=== PATIENT | male | born 1995 | race Caucasian/White ===

== ENCOUNTER → 2018-03-31 | Outpatient (CLI) | payer OTHER ==
--- NOTE | 2018-03-31 15:34 | RADIOLOGY REPORT (SQ) ---
EXAM DESCRIPTION: ARTHRO SHOULDER INJECTION; FLUORO/NEEDLE PLACEMENT COMPLETED DATE/TIME: 03/31/2018 3:15 pm REASON FOR STUDY: SLAP TEAR COMPARISON: None. FLUOROSCOPY TIME: 0.2 minutes 1 images saved to PACS. LIMITATIONS: None. PROCEDURE: Procedure, risks, benefits and alternatives explained to patient who then gave written co nsent. The left shoulder was marked and a time out was called for correct procedure verification. Po sterior entry site marked using fluoroscopic guidance. Shoulder prepped and draped using sterile delicia hnique. Local anesthesia achieved using 1% lidocaine injection. Hypodermic needle introduced into t he joint space under direct fluoroscopic visualization. Non-ionic contrast instilled to confirm intra -articular position. Dilute gadolinium solution then injected. Needle removed and entry site covered with sterile bandage. No immediate complications noted. TECHNIQUE: Digital images acquired during fluoroscopy and stored on PACS. Patient immediately take n to the MR suite for additional imaging. INJECTION LOCATION: Posterior left shoulder. CONTRAST TYPE AND AMOUNT: 1 cc Isovue 10 cc Prohance/Saline mixture. IMPRESSION: SUCCESSFUL NEEDLE PLACEMENT AND INJECTION FOR LEFT SHOULDER MR ARTHROGRAM USING POSTERIO R APPROACH. COMMENT: Quality ID 145: Final reports for procedures using fluoroscopy that document radiation exp osure indices, or exposure time and number of fluorographic images (if radiation exposure indices are not available) TECHNICAL DOCUMENTATION: JOB ID: [id number]- All Rights Reserved Reading location - IP/workstation name: [email or web address]
--- NOTE | 2018-03-31 15:34 | RADIOLOGY REPORT (SQ) ---
EXAM DESCRIPTION: ARTHRO SHOULDER INJECTION; FLUORO/NEEDLE PLACEMENT COMPLETED DATE/TIME: 03/31/2018 3:15 pm REASON FOR STUDY: SLAP TEAR COMPARISON: None. FLUOROSCOPY TIME: 0.2 minutes 1 images saved to PACS. LIMITATIONS: None. PROCEDURE: Procedure, risks, benefits and alternatives explained to patient who then gave written co nsent. The left shoulder was marked and a time out was called for correct procedure verification. Po sterior entry site marked using fluoroscopic guidance. Shoulder prepped and draped using sterile delicia hnique. Local anesthesia achieved using 1% lidocaine injection. Hypodermic needle introduced into t he joint space under direct fluoroscopic visualization. Non-ionic contrast instilled to confirm intra -articular position. Dilute gadolinium solution then injected. Needle removed and entry site covered with sterile bandage. No immediate complications noted. TECHNIQUE: Digital images acquired during fluoroscopy and stored on PACS. Patient immediately take n to the MR suite for additional imaging. INJECTION LOCATION: Posterior left shoulder. CONTRAST TYPE AND AMOUNT: 1 cc Isovue 10 cc Prohance/Saline mixture. IMPRESSION: SUCCESSFUL NEEDLE PLACEMENT AND INJECTION FOR LEFT SHOULDER MR ARTHROGRAM USING POSTERIO R APPROACH. COMMENT: Quality ID 145: Final reports for procedures using fluoroscopy that document radiation exp osure indices, or exposure time and number of fluorographic images (if radiation exposure indices are not available) TECHNICAL DOCUMENTATION: JOB ID: [id number] [employer]- All Rights Reserved Reading location - IP/workstation name: [email or web address]
--- NOTE | 2018-03-31 16:39 | RADIOLOGY REPORT (SQ) ---
EXAM DESCRIPTION: MRI LT UPPER JOINT WITH COMPLETED DATE/TIME: 03/31/2018 4:10 pm REASON FOR STUDY: SLAP TEAR COMPARISON: None. TECHNIQUE: Left shoulder images acquired and stored on PACS. Oblique coronal, oblique sagittal, and axial imaging to include fat sensitive sequences as T1, water sensitive sequences as FST2/STIR, and c ontrast sensitive sequences as FST1. LIMITATIONS: None. FINDINGS: JOINT DISTENTION: Adequate distention for interpretation. Go no contrast in the subacromi al bursa. BONE MARROW AND CORTEX: Normal. No significant osteophytes. No edema or defects. AC JOINT: Type II acromion. No significant AC joint arthropathy. GLENOHUMERAL JOINT: No subluxation or dislocation. No focal chondral defects or reactive bone changes . ROTATOR CUFF: Intact without significant tendinopathy, partial or full-thickness tears. No peritendin itis. LABRUM AND BICEPS LABRAL COMPLEX: There is increased signal in the superior labrum without significan t extension into the biceps. Distal biceps is normal. INFERIOR LABRAL COMPLEX: Bony glenoid and labrum intact. IGHL intact without thickening or tear. No p aralabral cysts. ADJACENT SOFT TISSUES: No masses or nodes. OTHER: No other significant finding. IMPRESSION: Slap tear without significant extension into the biceps. Intact rotator cuff. TECHNICAL DOCUMENTATION: JOB ID: [id number] [employer]- All Rights Reserved Reading location - IP/workstation name: [email or web address]
== END ==
LOC: RAD 14:27
PROVIDERS: ATTEND Orthopaedic Surgery
DX: S43.432A Superior glenoid labrum lesion of left shoulder, initial encounter (principal); X58.XXXA Exposure to other specified factors, initial encounter; Y93.9 Activity, unspecified; Y92.9 Unspecified place or not applicable
CPT/HCPCS: 73222; 77002; 23350; A9576

== ENCOUNTER 2020-05-08 14:55 | Emergency (ER) | payer OTHER ==
[2020-05-08] MEDS ORDERED: FENTANYL CITRATE INJ/PF 100 MCG/2 ML AMPUL IV ONE (14:59)
--- NOTE | 2020-05-08 15:01 | ER Document Report ---
ED Medical Screen (RME) - General Stated Complaint: LEFT ARM INJURY Time Seen by Provider: 05/08/20 14:58 Primary Care Provider: NICKI ROUSE MD [Primary Care Provider] - Follow up as needed Information source: Patient Notes: Patient states that he was stretching in his shoulder when out of joint. Patient has had previous shoulder surgery in the past. Patient states that he has had his shoulder dislocate on him previously but was able to reduce it himself. Patient with positive deformity to left shoulder joint. I have greeted and performed a rapid initial assessment of this patient. A comprehensive ED assessment and evaluation of the patient, analysis of test results and completion of the medical decision making process will be conducted by additional ED providers. TRAVEL OUTSIDE OF THE [place] IN LAST 30 DAYS: No Physical Exam - General General appearance: Alert, Anxious Notes: Deformity to left shoulder, 2+ radial pulse Doctor's Discharge - Discharge Referrals: NICKI ROUSE MD [Primary Care Provider] - Follow up as needed
[2020-05-08] MEDS ORDERED: PROPOFOL INJ 200 MG/20 ML VIAL IV ONE (15:39)
[2020-05-08] MEDS ORDERED: KETAMINE HCL INJ 500 MG/10 ML VIAL IV ONE (15:39)
--- NOTE | 2020-05-08 15:41 | RADIOLOGY REPORT (SQ) ---
EXAM DESCRIPTION: SHOULDER LEFT 2 OR MORE VIEWS IMAGES COMPLETED DATE/TIME: 05/08/2020 3:23 pm REASON FOR STUDY: dislocation after stretching COMPARISON: None. NUMBER OF VIEWS: 2 TECHNIQUE: Internal and external rotation images acquired of the left shoulder. LIMITATIONS: None. FINDINGS: MINERALIZATION: Normal. BONES: No acute fracture. No worrisome bone lesions. No significant osteophytes. GLENOHUMERAL JOINT: There is an anteromedial dislocation at the glenohumeral joint. ACROMIOCLAVICULAR JOINT: No large osteophytes. SOFT TISSUES: No calcifications. VISUALIZED RIBS, SPINE, AND LUNG: No other significant finding. OTHER: Postoperative changes from biceps tenodesis. No other significant finding. IMPRESSION: Anteromedial glenohumeral dislocation. TECHNICAL DOCUMENTATION: JOB ID: [id number] 2010 [employer]- All Rights Reserved Reading location - IP/workstation name: [email or web address]
--- NOTE | 2020-05-08 16:10 | ER Document Report ---
ED General - General Stated Complaint: LEFT ARM INJURY Time Seen by Provider: 05/08/20 14:58 Primary Care Provider: NICKI ROUSE MD [NO LOCAL MD] - Follow up as needed Mode of Arrival: Ambulatory Information source: Patient, Parent - mother Naila Notes: ED Medical Screen (Atilio oconnell) - General Stated Complaint: LEFT ARM INJURY Time Seen by Provider: 05/08/20 14:58 Primary Care Provider: NICKI ROUSE MD [Primary Care Provider] - Follow up as needed Information source: Patient Notes: Patient states that he was stretching in his shoulder when out of joint. Patient has had previous shoulder surgery in the past. Patient states that he has had his shoulder dislocate on him previously but was able to reduce it himself. Patient with positive deformity to left shoulder joint. I have greeted and performed a rapid initial assessment of this patient. A comprehensive ED assessment and evaluation of the patient, analysis of test results and completion of the medical decision making process will be conducted by additional ED providers. TRAVEL OUTSIDE OF THE [place] IN LAST 30 DAYS: No Physical Exam - General General appearance: Alert, Anxious Notes: Deformity to left shoulder, 2+ radial pulse MY NOTES 24-year-old male arrives by POV with his mother after he was stretchin g his arms behind his back and a stretching maneuver and felt his left shoulder pop out of socket dislocated. He had a similar problem while he was in the [employer] in [place] in 2017. He had to have a medical discharge later. The shoulder has dislocated itself around 5 or 6 times since then and is always self reduced. This occurred around 1 hour ago prior to arrival and patient was in a great deal of pain and distress cursing and in general very much and discomfort with diaphoresis. Patient was given fentanyl as ordered at triage but this did not help with his pain it was still 10 out of 10. He had full pulses good sensation to his fingers with capillary refill full. He received IV by nursing staff and then nursing staff gave him ketamine 100 propofol 100 by my orders. Patient had full relief of his pain but did require bagging for approximately 5 to 10 minutes because of sats dropping to 88. Patient began to move his right hand and fingers with tears in his eyes and pressure remained stable and oxygenation remained around 98 to 100% on nasal cannula. Patient's left shoulder was reduced quite easily and x-ray portable was taken with reduction noted on x-ray. Patient was placed in a sling Patient also reports he had a biceps head repair by [facility] in 2018. TRAVEL OUTSIDE OF THE [place] IN LAST 30 DAYS: No - HPI Onset: Just prior to arrival Onset/Duration: Sudden, Persistent, Worse Quality of pain: Achy Severity: Severe Pain Level: 5 Associated symptoms: Weakness Exacerbated by: Movement Relieved by: Denies Similar symptoms previously: Yes Recently seen / treated by doctor: No Past Medical History - General Information source: Patient - Social History Smoking Status: Never Smoker Cigarette use (# per day): No Chew tobacco use (# tins/day): No Smoking Education Provided: No Frequency of alcohol use: Occasional Drug Abuse: None Lives with: Family Family History: Reviewed & Not Pertinent Patient has suicidal ideation: No Patient has homicidal ideation: No Review of Systems - Review of Systems Constitutional: See HPI, Weakness - But EENT: No symptoms reported Cardiovascular: No symptoms reported Respiratory: No symptoms reported Gastrointestinal: No symptoms reported Genitourinary: No symptoms reported Male Genitourinary: No symptoms reported Musculoskeletal: See HPI, Joint pain - Left shoulder dislocation obvious with pain, Joint swelling Skin: No symptoms reported Hematologic/Lymphatic: No symptoms reported Neurological/Psychological: No symptoms reported Physical Exam - Vital signs Vitals: Temp Pulse Resp BP Pulse Ox 98.0 F 115 H 20 136/94 H 98 05/08/20 14:58 05/08/20 14:58 05/08/20 14:58 05/08/20 14:58 05/08/20 14:58 Interpretation: Tachycardic - General General appearance: Anxious - HEENT Head: Normocephalic, Atraumatic Eyes: Normal Pupils: PERRL Sinus: Normal Nasal: Normal Mouth/Lips: Normal Mucous membranes: Normal Pharynx: Peritonsillar abscess Neck: Normal - Respiratory Respiratory status: No respiratory distress Chest status: Nontender Breath sounds: Normal Chest palpation: Normal - Cardiovascular Rhythm: Tachycardia Heart sounds: Normal auscultation Murmur: No - Abdominal Inspection: Normal Distension: No distension Bowel sounds: Normal Tenderness: Nontender Organomegaly: No organomegaly - Rectal Prostate: Other - deferred here - Genitourinary Scrotum: Other - Understandrreddefe - Back Back: Normal - Extremities General upper extremity: Tender, Other - Dislocated left shoulder easily reduced after medications around 1600 Course - Vital Signs Vital signs: Temp Pulse Resp BP Pulse Ox 98.0 F 115 H 20 136/94 H 98 05/08/20 14:58 05/08/20 14:58 05/08/20 14:58 05/08/20 14:58 05/08/20 14:58 - Diagnostic Test Radiology reviewed: Reports reviewed Procedures - Joint Reduction/Fracture Care Left Shoulder Time completed: 16:25 Consent obtained: Yes Conscious sedation: Yes Pre-procedure NV exam: Yes Post-procedure NV exam: Yes Post-reduction x-ray: Joint reduced Reduction attempts: 1 Complications: Yes - bagged pt with bag valve x 5-10 minutes b/o 88% sat..1 Discharge - Discharge Clinical Impression: H/O reduction of closed dislocation Shoulder dislocation, recurrent Qualifiers: Laterality: left Qualified Code(s): M24.412 - Recurrent dislocation, left shoulder Condition: Good Disposition: HOME, SELF-CARE Additional Instructions: Follow-up with Dr. Trammell orthopedics and may see also Dr. Aj Shore orthopedics or orthopedics of choice. Please keep your shoulder and in a fixed flexed position in your immobilizer sling and avoid any movement of your left shoulder until evaluated by orthopedics. R ICE that is rest ice compression elevation and try not to keep ice on more than 5 to 10 minutes every hour. Try to apply ice with a cushioned washrag and avoid direct contact to avoid nerve injury. Return to ER if symptoms worsen or recur. That should mother provide pain medicines for you as needed. Prescriptions: Etodolac [Lodine] 400 mg PO BID PRN #14 tablet PRN Reason: Pain Scale Of 1 Oxycodone HCl/Acetaminophen [Percocet 5-325 mg Tablet] 1 tab PO Q4H PRN #15 tablet PRN Reason: Referrals: NICKI ROUSE MD [NO LOCAL MD] - Follow up as needed DANIELLE TRAMMELL DO [ACTIVE STAFF] - Follow up as needed
--- NOTE | 2020-05-08 16:18 | RADIOLOGY REPORT (SQ) ---
EXAM DESCRIPTION: SHOULDER LEFT 1 VIEW IMAGES COMPLETED DATE/TIME: 05/08/2020 4:09 pm REASON FOR STUDY: post reduction COMPARISON: Left shoulder radiographs earlier same day NUMBER OF VIEWS: 1 TECHNIQUE: A single frontal images acquired of the left shoulder. LIMITATIONS: None. FINDINGS: A single frontal view of the left shoulder demonstrates apparent reduction of the previous ly described anteromedial glenohumeral dislocation. No definite fracture on this single frontal view . Mineralization is normal. No significant soft tissue abnormality. IMPRESSION: Status post reduction of left glenohumeral dislocation. No definite associated fracture on this single frontal view. If there is concern for fracture, consider orthogonal views. TECHNICAL DOCUMENTATION: JOB ID: [id number] 2010 [employer]- All Rights Reserved Reading location - IP/workstation name: [email or web address]
[2020-05-08 17:32] VITALS: BP 138/86
== END 2020-05-08 17:30 | disposition home or self-care (01) ==
LOC: ER 14:55
PROC: 0RSKXZZ Reposition Left Shoulder Joint, External Approach (ICD-10-PCS; principal; 2020-05-08)
DX: M24.412 Recurrent dislocation, left shoulder (principal)
CPT/HCPCS: 99285; 96374; 96375; 73020; 73030; 23650; J3010; J3490; J2704

== ENCOUNTER 2020-09-19 01:43 | Emergency (ER) | payer OTHER ==
--- NOTE | 2020-09-19 02:29 | RADIOLOGY REPORT (SQ) ---
EXAM DESCRIPTION: XR SHOULDER 2 OR MORE VIEWS COMPLETED DATE/TME: 09/19/2020 02:06 CLINICAL HISTORY: 24 years, Male, injury to shoulder, unable to move COMPARISON: None. NUMBER OF VIEWS: 2 TECHNIQUE: 2 view left shoulder LIMITATIONS: None. FINDINGS: Inferior shoulder dislocation. No acute fracture. Questionable sacs deformity. IMPRESSION: Anterior inferior dislocation of the humerus copyright 2010 [employer]- All Rights Reserved
[2020-09-19] MEDS ORDERED: HYDROMORPHONE HCL INJ/PF 2 MG/ML AMPULE IV ONE ×2 (02:51→03:19)
[2020-09-19] MEDS ORDERED: ONDANSETRON HCL INJ/PF 4 MG/2 ML SDV IV ONE (02:51)
--- NOTE | 2020-09-19 02:53 | ER Document Report ---
ED General - General Chief Complaint: Shoulder Injury Stated Complaint: LEFT SHOULDER INJURY Time Seen by Provider: 09/19/20 02:50 Primary Care Provider: PETER YO [Primary Care Provider] - Follow up as needed TRAVEL OUTSIDE OF THE [place] IN LAST 30 DAYS: No - HPI Context: Chief Complaint: [Left shoulder pain] [This is a 24-year-old male who presents to the emergency department complaining of sudden onset left shoulder pain. Patient has a history of left anterior your shoulder was dislocated today. This was reduced. Please wear the sling as needed for comfort. Follow-up with orthopedic surgery if you have recurrent shoulder dislocations. You should continue to take anti-inflammatories such as ibuprofen 600 mg every 6 hours for pain. Continue to apply ice to the area is much your able. Please return immediately if you develop weakness, numbness, spreading redness from the area, or any other symptoms that are concerning to you., He has had surgery on his shoulder as well but continues to have problems with the shoulder. Patient [facility] to plan out a plan of treatment to stabilize the shoulder. Patient states that just prior to arrival he was just raising both of his arms over his head in a stretch at home and had a sudden onset of pain in his left shoulder joint followed by inability to move his left upper extremity. ] History obtained from [patient] Symptoms began:[Just prior to arrival] Onset: [Sudden] Timing: [Sudden] Quality: [Sharp] Intensity: [5] Location: [Left shoulder] Radiation: [Denies] [The pain does not migrate to a new location.] Aggravating factors: Movement and palpation Relieving factors: [none] [Denies] SOB [Denies] nausea [Denies] vomiting [Denies] sweats [Denies] fever [Denies] cough [Denies] calf or leg swelling or pain Past Medical History - General Information source: Patient - Social History Smoking Status: Never Smoker Family History: Reviewed & Not Pertinent Review of Systems - Review of Systems Notes: Review of systems as below unless otherwise stated in HPI. CONSTITUTIONAL [No] fever, [No] chills. EYES [No] eye pain. ENT [No] URI symptoms, [No] sore throat, [No] ear pain. CARDIOVASCULAR [No] chest pain, [No] palpitations, [No] edema. RESPIRATORY [No] Cough, [No] SOB, [No] wheezing. GASTROINTESTINAL [No] abdominal pain, [No] nausea, [No] Diarrhea, [No] Vomiting, [No] constipation, [No] melena, [No] rectal bleeding. GENITOURINARY [No] dysuria, [No] urinary frequency, [No] hematuria, [No] urinary urgency MUSCULOSKELETAL [No] Back pain. Positive left shoulder pain SKIN [No] Rash. NEUROLOGIC [No] Headache, [No] recent seizures, [No] paralysis,[No] parathesias. ENDOCRINE [No] polyuria. HEMO/LYMPATIC [No] easy brusing PSYCHIATRIC [No] depression. Physical Exam - Vital signs Vitals: Temp Pulse Resp BP Pulse Ox 97.6 F 91 16 131/85 H 99 09/19/20 01:51 09/19/20 01:51 09/19/20 01:51 09/19/20 01:51 09/19/20 01:51 - Notes Notes: CONSTITUTIONAL [Vital signs reviewed, Patient appears uncomfortable and in severe pain, Alert and oriented X 3] HEAD [Atraumatic, Normocephalic.] EYES [Eyes are normal to inspection, No discharge from eyes, Extraocular muscles intact, Sclera are normal, Conjunctiva are normal.] ENT [External ears normal to inspection, Nose examination normal, Mouth normal to inspection.] NECK [Normal ROM, No jugular venous distention, No meningeal signs, ] RESPIRATORY CHEST [Chest is nontender, Breath sounds normal, No respiratory distress.] CARDIOVASCULAR [RRR, No murmurs, Normal S1 S2, No rub, No gallop.] ABDOMEN [Abdomen is nontender, No pulsatile masses, No other masses, Bowel sounds normal, No distension, No peritoneal signs, No hernias.] BACK [There is no CVA Tenderness, There is no tenderness to palpation, Normal inspection.] UPPER EXTREMITY 70 exam focuses on the left upper extremity. Patient is holding his left upper extremity with his right hand. The left upper extremity is internally rotated flexed at the elbow. There is fullness on palpation of the left anterior shoulder region. There is no crepitus noted. Sensation is intact in the left shoulder region. Patient is able to move all 5 digits of his left hand. Patient has a radial pulse of 2+ in his left upper extremity. Patient's sensitivity to touch is intact in all 5 digits. Cap refill is less than 2 seconds in all 5 fingers. LOWER EXTREMITY [Inspection normal, No cyanosis, No clubbing, No edema, No calf tenderness, NEURO [No focal motor deficits, No focal sensory deficits, Speech normal.] SKIN [Skin is warm, Skin is dry, Skin is normal color.] PSYCHIATRIC [Normal affect. ] Course - Re-evaluation Re-evalutation: 09/19/20 04:54 Patient tolerated conscious sedation and closed reduction well. Results of ED MSE discussed with patient and patient's significant other. [facility] his left [facility] instability. All questions were answered prior to discharge. Emergency signs and symptoms, reasons to return to the emergency department discussed with patient and patient's significant other. - Vital Signs Vital signs: Temp Pulse Resp BP Pulse Ox 97.6 F 77 16 134/81 H 99 09/19/20 01:51 09/19/20 03:58 09/19/20 04:06 09/19/20 04:06 09/19/20 04:06 - Laboratory Results Critical Laboratory Results Reviewed: No Critical Results - Radiology Results Critical Radiology Results Reviewed: Yes Attending or Supervising Physician who Reviewed Radiology: FLAVIA LOPEZ IV - Prereduction films of the left shoulder shows anterior shoulder dislocation with no acute fracture. And a questionable Sachs deformity per the radiologist read. Post reduction films of the left shoulder show "satisfactory closed reduction of the left shoulder dislocation without definite acute fracture" Procedures - Conscious Sedation Conscious sedation Time started: 02:50 Time completed: 03:15 Consent obtained: Yes Indication: Closed left anterior shoulder dislocation Last meal: Over 6 hours Emergent conditions applies.: E. - ASA Classification Normal healthy pt.: P1. - ASA Classification Airway Evaluation: Normal anatomy Mallampati Classification: Class 2 Used during procedure: Suction available, IV access obtained, Pulse ox on pt., cafeteria monitor on pt. Medications administered: Etomidate Reversal agents: None I personally performed/intraservice time: Sedation, Procedure, 30 min or less Complications: No - Immobilization Left Shoulder Time completed: 03:20 Pre-Proc Neuro Vasc Exam: Normal Immobilizer type: Shoulder immobilizer Performed by: CUONG Post-Proc Neuro Vasc Exam: Normal, Unchanged from pre-exam Alignment checked and good: Yes - Joint Reduction/Fracture Care Left Shoulder Time completed: 03:10 Consent obtained: Yes Conscious sedation: Yes Pre-procedure NV exam: Yes - NVI Manipulation comment: Traction countertraction Post-procedure NV exam: Yes - NVI Post-reduction x-ray: Joint reduced Reduction attempts: 1 Complications: No Discharge - Discharge Clinical Impression: Anterior dislocation of left shoulder Qualifiers: Encounter type: initial encounter Qualified Code(s): S43.015A - Anterior dislocation of left humerus, initial encounter Condition: Stable Disposition: HOME, SELF-CARE Instructions: Shoulder Dislocation ([facility]), Sling as Treatment ([facility]) Additional Instructions: Return to the Emergency Department without delay if any worse. HOME CARE INSTRUCTIONS & INFORMATION: Thank you for choosing us for your medical needs. We hope you're satisfied with the care you received. After you leave, you must properly care for your problem and, at the same time, observe its progress. Any condition can change. Some illnesses can change rapidly over hours or days. If your condition worsens, return to the Emergency Department or see your physician promptly. ABOUT YOUR X-RAYS AND EKG'S: If you had an EKG or X-rays taken, they have been read by the Emergency Physician. The X-rays and EKG's will also be read by a Radiologist or Watch Caser within 24 hours. If discrepancies are noted, you will be notified by telephone. Please be certain the ED has a correct telephone number & address where you can be reached. Also, realize that some fractures or abnormalities do not show up on initial X-rays. If your symptoms continue, see your physician. ABOUT YOUR LABORATORY TEST: If you had laboratory tests, the results have been reviewed by the Emergency Physician. Some test results (for example cultures) may not be available for several days. You will be contacted if any test result shows you need additional treatment. Please be certain the ED has a correct telephone number and address where you can be reached. ABOUT YOUR MEDICATIONS: You will receive instructions on how to take your medicine on the prescription label you receive. Additional information may be provided by the Pharmacy. If you have questions afterwards, call the ED for clarification or further instructions. Some prescribed medications may cause drowsiness. Do not perform tasks such as driving a car or operating machinery without consulting your Pharmacist. If you feel you need a refill of pain medication, your condition will need re-evaluation. Please do not call for a refill of any medication. ABOUT YOUR SIGNATURE: Signature of this document acknowledges to followin. Understanding that you received emergency treatment and that you may be released before al medical problems are known or treated. Please be certain the ED has a correct phone number & address where you can be reached. 2. Acknowledgement that you will arrange for follow-up care as recommended. 3. Authorization for the Emergency Physician to provide information to your follow-up Physician in order to maximize your care. AT ANY TIME, IF YOUR SYMPTOMS CHANGE SIGNIFICANTLY OR WORSEN OR YOU DEVELOP NEW SYMPTOMS, RETURN TO THE EMERGENCY DEPARTMENT IMMEDIATELY FOR RE-EVALUATION. OUR GOAL IS TO PROVIDE EXCELLENT MEDICAL CARE! WE HOPE THAT WE HAVE MET YOUR EXPECTATIONS DURING YOUR EMERGENCY DEPARTMENT VISIT AND THAT YOU FEEL YOU HAVE RECEIVED EXCELLENT CARE! Prescriptions: Oxycodone HCl/Acetaminophen [Percocet 5-325 mg Tablet] 1 tab PO Q6HP PRN #15 tablet PRN Reason: pain [facility]: [facility] [[facility] - Follow up as needed
[2020-09-19] MEDS ORDERED: ETOMIDATE INJ/PF 20 MG/10 ML SDV IV ONE (03:20)
--- NOTE | 2020-09-19 04:13 | RADIOLOGY REPORT (SQ) ---
EXAM: SHOULDER LEFT 2 OR MORE VIEWS CLINICAL DATA: 24 years Male POST REDUCTION TECHNICAL DATA: 2 x-ray views of the left shoulder were performed on 09/19/2020 at 3:49 AM. COMPARISONS: 09/19/2020 at 2:07 AM FINDINGS: Since the prior examination there has been satisfactory closed reduction of the left shoulder dislocation. There is no evidence of acute fracture. The acromioclavicular joint is intact. Bone mineralization is normal. No arthritic changes are identified. There are tubular artifacts projecting over the left shoulder. IMPRESSION: Satisfactory closed reduction of the left shoulder dislocation without definite acute fracture.
[2020-09-19] MEDS ORDERED: HYDROCODONE/ACETAMINOPHEN 5-325 MG (6 TAB/ER DISP) PO PRN (04:46)
[2020-09-19 05:02] VITALS: BP 129/89
== END 2020-09-19 05:02 | disposition home or self-care (01) ==
LOC: ER 01:43
DX: S43.015A Anterior dislocation of left humerus, initial encounter (principal); X58.XXXA Exposure to other specified factors, initial encounter; Z98.890 Other specified postprocedural states
CPT/HCPCS: 96376; 99285; 99152; 96374; 96375; 73030; 23650; J1170; J2405; J3490